=== PATIENT | female | born 2000 | race Caucasian/White ===

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

== ENCOUNTER 2023-05-10 06:51 | Day surgery (SDC) | payer OTHER ==
[2023-05-10] MEDS ORDERED: Scopolamine 1.5 mg/72 hour Patch ONE (08:01)
[2023-05-10] MEDS ORDERED: Ferric Subsulfate 8 ML TOPICAL SOLN ONE (09:28)
[2023-05-10] MEDS ORDERED: HYDROmorphone 0.5 MG/0.5 ML SYRINGE ONE (09:35)
[2023-05-10] MEDS ORDERED: fentaNYL PF 100 MCG/2 ML SYRINGE ONE (09:35)
[2023-05-10] MEDS ORDERED: Midazolam HCl 2 mg/2 ml Vial ONE (09:35)
[2023-05-10] MEDS ORDERED: Lidocaine 4% Topical Sol 50 ML BOT ONE (09:39)
[2023-05-10] MEDS ORDERED: PROPOFOL 200 MG/20 ML VIAL ONE (09:40)
[2023-05-10] MEDS ORDERED: Lidocaine 1% PF 5 ML VIAL ONE (09:40)
[2023-05-10] MEDS ORDERED: Dexamethasone 20 MG/5 ML VIAL ONE (09:40)
[2023-05-10] MEDS ORDERED: Ondansetron PF 4 MG/2 ML Vial ONE (09:40)
[2023-05-10] MEDS ORDERED: methylPREDNISolone Acetate 40 mg/ml Vial ONE (09:49)
[2023-05-10] MEDS ORDERED: Sevoflurane 250 ML INH ANEST BOTTLE ONE (09:49)
[2023-05-10] MEDS ORDERED: fentaNYL 50 mcg/mL 1 mL Vial ONE (10:35)
[2023-05-10] MEDS ORDERED: Hydrocodone-Acetamin 15 ML UDCUP ONE (13:09)
[2023-05-11 14:04] LABS: Allergen,Alternaria altern.IgE Less than 0.10 kU/L (Less than 0.10); Allergen,Ash white IgE Less than 0.10 kU/L (Less than 0.10); Allergen,Aspergillus fumig.IgE Less than 0.10 kU/L (Less than 0.10); Allergen,Beef IgE Less than 0.10 kU/L (Less than 0.10); Allergen,Bermuda grass IgE Less than 0.10 kU/L (Less than 0.10); Allergen,Cat dander IgE Less than 0.10 kU/L (Less than 0.10); Allergen,Cedar mountain IgE Less than 0.10 kU/L (Less than 0.10); Allergen,Chocolate/Cacao IgE Less than 0.10 kU/L (Less than 0.10); Allergen,Cladosporium herb.IgE Less than 0.10 kU/L (Less than 0.10); Allergen,Corn IgE Less than 0.10 kU/L (Less than 0.10); Allergen,Cottonwood Tree IgE Less than 0.10 kU/L (Less than 0.10); Allergen,Crab IgE Less than 0.10 kU/L (Less than 0.10); Allergen,Curvularia lunata IgE Less than 0.10 kU/L (Less than 0.10); Allergen,D. pteronyssinus IgE Less than 0.10 kU/L (Less than 0.10); Allergen,Dog dander IgE Less than 0.10 kU/L (Less than 0.10); Allergen,Egg white IgE Less than 0.10 kU/L (Less than 0.10); Allergen,Egg yolk IgE Less than 0.10 kU/L (Less than 0.10); Allergen,Elm AmericanWhite IgE Less than 0.10 kU/L (Less than 0.10); Allergen,Johnson grass IgE Less than 0.10 kU/L (Less than 0.10); Allergen,Lamb's qrters Gooseft Less than 0.10 kU/L (Less than 0.10); Allergen,Mesquite IgE Less than 0.10 kU/L (Less than 0.10); Allergen,Milk IgE Less than 0.10 kU/L (Less than 0.10); Allergen,Oat IgE Less than 0.10 kU/L (Less than 0.10); Allergen,Peanut IgE Less than 0.10 kU/L (Less than 0.10); Allergen,Pecan nut IgE Less than 0.10 kU/L (Less than 0.10); Allergen,Pecan/Hickory IgE Less than 0.10 kU/L (Less than 0.10); Allergen,Plantain English IgE Less than 0.10 kU/L (Less than 0.10); Allergen,Pork IgE Less than 0.10 kU/L (Less than 0.10); Allergen,Ragweed giant IgE Less than 0.10 kU/L (Less than 0.10); Allergen,Rice IgE Less than 0.10 kU/L (Less than 0.10); Allergen,Saltwort RussianThist Less than 0.10 kU/L (Less than 0.10); Allergen,Shrimp IgE Less than 0.10 kU/L (Less than 0.10); Allergen,Soybean IgE Less than 0.10 kU/L (Less than 0.10); Allergen,Sycamore Maple Lf IgE Less than 0.10 kU/L (Less than 0.10); Allergen,Timothy grass IgE Less than 0.10 kU/L (Less than 0.10); Allergen,Tomato IgE Less than 0.10 kU/L (Less than 0.10); Allergen,Wheat IgE Less than 0.10 kU/L (Less than 0.10); Allergen,Wormwood IgE Less than 0.10 kU/L (Less than 0.10); IgE Total Antibody 7.6 kU/L (0-192.0)
[2023-05-16 16:15] LABS: Allergen Live Oak Virginia IgE Less than 0.10 kU/L (Class 0); Allergen,Careless weed IgE Less than 0.10 kU/L (Class 0)
== END 2023-05-10 13:35 | disposition home or self-care (01) ==
LOC: SDC 06:51
PROVIDERS: ATTEND Otolaryngology Plastic Surgery within the Head & Neck
PROC: 0CBQ0ZZ Excision of Adenoids, Open Approach (ICD-10-PCS; principal; 2023-05-10)
PROC: 0CBPXZZ Excision of Tonsils, External Approach (ICD-10-PCS; principal; 2023-05-10)
DX: J35.3 Hypertrophy of tonsils with hypertrophy of adenoids (principal); J35.01 Chronic tonsillitis; G47.33 Obstructive sleep apnea (adult) (pediatric); J30.9 Allergic rhinitis, unspecified
CPT/HCPCS: 82785; 88304; J1030; J1100; J1170; J2250; J2405; J2704; J3010